=== PATIENT | female | born 1990 | race Caucasian/White ===

== ENCOUNTER 2017-12-27 19:32 | Emergency (ER) | payer OTHER | END 2017-12-27 22:21 | disposition home or self-care (01) | LOC: D.ER 19:32 | DX: S80.01XA Contusion of right knee, initial encounter (principal); S50.01XA Contusion of right elbow, initial encounter; W19.XXXA Unspecified fall, initial encounter; Y93.89 Activity, other specified; Y92.828 Other wilderness area as the place of occurrence of the external cause; S80.211A Abrasion, right knee, initial encounter; S50.311A Abrasion of right elbow, initial encounter ==

== ENCOUNTER 2018-03-02 21:05 | Emergency (ER) | payer OTHER ==
[~2018-03-02] VITALS: Ht 149.9 cm; Wt 80.0 kg
[2018-03-02 21:21] VITALS: Ht 149.9 cm; Wt 80.0 kg
[2018-03-02] MEDS ORDERED: PHENERGAN25 M1 (21:23)
[2018-03-02 22:00] LABS: BASOPHILS 0.1 % (0-2); EOSINOPHILS 0.1 % (0-7); HEMATOCRIT 39.8 % (36.0-48.0); HEMOGLOBIN 14.9 g/dL (12-16); IMMATURE GRANULOCYTES 0.3 % (0-5); LYMPHOCYTES 10.2 % (15-50); MCH 32.6 pg (26.0-34.0); MCHC 37.4 g/dL (31.0-37.0); MCV 87.1 fL (80.0-100.0); MEAN PLATELET VOLUME 10.3 fL (7.4-10.4); MONOCYTES 9.2 % (2-11); NEUTROPHILS 80.1 % (40-80); PLATELET COUNT 248 10x3/uL (130-400); RBC 4.57 10x6/uL (4.00-5.40); RDW 11.8 % (11.5-14.5); WBC 13.8 10x3/uL (4.8-10.8)
[2018-03-02 22:08] LABS: APPEARANCE HAZY (CLEAR); BILIRUBIN 3+ (NEGATIVE); COLOR AMBER (YELLOW); GLUCOSE NEGATIVE (NEGATIVE); KETONE NEGATIVE (NEGATIVE); NITRITE NEGATIVE (NEGATIVE); PROTEIN TRACE mg/dL (NEGATIVE)
[2018-03-02 22:13] LABS: BACTERIA MODERATE /hpf (NONE SEEN); EPITHELIAL CELLS 0-5 /hpf (0-5); RED CELLS - URINE RARE /hpf (0-5)
[2018-03-02 22:14] LABS: AMORPHOUS SEDIMENT <1+ /lpf (NONE SEEN); HYALINE CAST OCC /lpf (NONE SEEN); WAXY CAST RARE /lpf (NONE SEEN)
[2018-03-02 22:41] LABS: ALBUMIN 3.5 g/dL (3.4-5.0); ANION GAP 9.5 mmol/L (8-16); BILIRUBIN - TOTAL 4.93 mg/dL (0.2-1.3); CALCIUM 9.4 mg/dL (8.5-10.1); CARBON DIOXIDE 31.3 mmol/L (21.0-32.0); CREATININE - SERUM 1.3 mg/dL (0.6-1.3); PROTEIN - SERUM 7.8 g/dL (6.4-8.2)
[2018-03-02 22:51] LABS: POTASSIUM - SERUM 2.8 mmol/L (3.5-5.1)
[2018-03-03] MEDS ORDERED: ZOFRAN ODT4 MG/UDTAB PO (00:57)
[2018-03-03 01:15] VITALS: BP 138/76
[2018-03-04 12:19] LABS: HEPATITIS C ANTIBODY 0.1 (0.0-0.9)
== END 2018-03-03 01:15 | disposition home or self-care (01) ==
LOC: D.ER 21:05
PROVIDERS: Family Medicine
DX: O21.9 Vomiting of pregnancy, unspecified (principal); Z3A.08 8 weeks gestation of pregnancy; E87.6 Hypokalemia

== ENCOUNTER 2018-05-24 17:25 | Emergency (ER) | payer OTHER ==
[~2018-05-24] VITALS: Ht 149.9 cm; Wt 77.7 kg
[~2018-05-24 17:25] MED LIST: PHENERGAN25 M1; ZOFRAN ODT4 MG/UDTAB PO
[2018-05-24 17:26] VITALS: Ht 149.9 cm; Wt 77.7 kg
[2018-05-24] MEDS ORDERED: TYLENOL W/CODEI1 TAB PO (18:23)
[2018-05-24 18:37] VITALS: BP 154/91
== END 2018-05-24 18:55 | disposition home or self-care (01) ==
LOC: D.ER 17:25
DX: O26.892 Other specified pregnancy related conditions, second trimester (principal); Z3A.00 Weeks of gestation of pregnancy not specified; M54.2 Cervicalgia; T14.8XXA Other injury of unspecified body region, initial encounter; V43.52XA Car driver injured in collision with other type car in traffic accident, initial encounter; Y93.89 Activity, other specified; Y92.410 Unspecified street and highway as the place of occurrence of the external cause

== ENCOUNTER 2018-05-24 18:56 | Outpatient (CLI) | payer OTHER ==
[2018-05-24 17:26] VITALS: BMI 34.6
[~2018-05-24 18:56] MED LIST changes: +TYLENOL W/CODEI1 TAB PO
[2018-05-24 20:41] LABS: BASOPHILS 0.1 % (0-2); EOSINOPHILS 0.8 % (0-7); IMMATURE GRANULOCYTES 0.5 % (0-5); LYMPHOCYTES 13.1 % (15-50); MCHC 34.4 g/dL (31.0-37.0); MEAN PLATELET VOLUME 9.5 fL (7.4-10.4); MONOCYTES 6.1 % (2-11); NEUTROPHILS 79.4 % (40-80); RBC 3.44 10x6/uL (4.00-5.40); RDW 12.6 % (11.5-14.5); WBC 16.9 10x3/uL (4.8-10.8)
[2018-05-24 21:02] LABS: INR 0.92 (0.85-1.17)
[2018-05-24 21:08] LABS: PLATELET COUNT 352 10x3/uL (130-400)
[2018-05-26 11:20] LABS: ACLA - IGG AB <9 GPL U/mL (0-14); ACLA - IGM AB <9 MPL U/mL (0-12)
[2018-05-27 13:17] LABS: LUPUS - INTERPRETATION Comment: (()); LUPUS - THROMBIN TIME 14.2 sec (0.0-23.0); LUPUS - dRVVT 34.7 sec (0.0-47.0); PTT-LA 33.5 sec (0.0-51.9)
== END 2018-05-24 22:05 ==
LOC: D.LDO 18:56
PROVIDERS: Obstetrics & Gynecology
DX: O26.892 Other specified pregnancy related conditions, second trimester (principal); Z3A.22 22 weeks gestation of pregnancy; M54.2 Cervicalgia; R10.30 Lower abdominal pain, unspecified; V49.9XXA Car occupant (driver) (passenger) injured in unspecified traffic accident, initial encounter; Y93.89 Activity, other specified; Y92.410 Unspecified street and highway as the place of occurrence of the external cause

== ENCOUNTER → 2018-05-26 13:34 | Outpatient (CLI) | payer OTHER ==
[2018-05-24 17:26] VITALS: BMI 34.6
[2018-05-26 13:51] LABS: BASOPHILS 0.2 % (0-2); EOSINOPHILS 0.7 % (0-7); HEMATOCRIT 31.5 % (36.0-48.0); HEMOGLOBIN 10.7 g/dL (12-16); IMMATURE GRANULOCYTES 0.5 % (0-5); LYMPHOCYTES 16.7 % (15-50); MCH 31.8 pg (26.0-34.0); MCV 93.5 fL (80.0-100.0); MEAN PLATELET VOLUME 9.6 fL (7.4-10.4); MONOCYTES 4.9 % (2-11); PLATELET COUNT 351 10x3/uL (130-400); RBC 3.37 10x6/uL (4.00-5.40); RDW 12.5 % (11.5-14.5)
== END | disposition home or self-care (01) ==
LOC: D.LDO 13:34
PROVIDERS: Obstetrics & Gynecology
DX: O26.899 Other specified pregnancy related conditions, unspecified trimester (principal); Z3A.00 Weeks of gestation of pregnancy not specified

== ENCOUNTER 2018-07-04 19:10 | Outpatient (CLI) | payer OTHER ==
[2018-07-04 19:46] LABS: BASOPHILS 0.2 % (0-2); EOSINOPHILS 0.8 % (0-7); HEMATOCRIT 30.8 % (36.0-48.0); HEMOGLOBIN 10.4 g/dL (12-16); IMMATURE GRANULOCYTES 0.4 % (0-5); LYMPHOCYTES 19.3 % (15-50); MCH 31.3 pg (26.0-34.0); MCHC 33.8 g/dL (31.0-37.0); MCV 92.8 fL (80.0-100.0); MEAN PLATELET VOLUME 9.6 fL (7.4-10.4); MONOCYTES 4.5 % (2-11); NEUTROPHILS 74.8 % (40-80); PLATELET COUNT 396 10x3/uL (130-400); RBC 3.32 10x6/uL (4.00-5.40); RDW 12.1 % (11.5-14.5); WBC 17.4 10x3/uL (4.8-10.8)
[2018-07-04 20:12] LABS: APPEARANCE CLEAR (CLEAR); BILIRUBIN NEGATIVE (NEGATIVE); COLOR YELLOW (YELLOW); GLUCOSE NEGATIVE (NEGATIVE); KETONE NEGATIVE (NEGATIVE); NITRITE NEGATIVE (NEGATIVE); PROTEIN TRACE mg/dL (NEGATIVE); SPECIFIC GRAVITY 1.025 (1.005-1.020); UROBILINOGEN NORMAL (NORMAL)
[2018-07-04 20:13] LABS: BACTERIA FEW /hpf (NONE SEEN); EPITHELIAL CELLS 0-5 /hpf (0-5); RED CELLS - URINE OCC /hpf (0-5); WHITE CELLS - URINE 0-5 /hpf (0-5)
[2018-07-05 01:09] LABS: UDS - AMPHET NEGATIVE QUAL (NEGATIVE); UDS - BARB NEGATIVE QUAL (NEGATIVE); UDS - BENZO NEGATIVE QUAL (NEGATIVE); UDS - COCAINE NEGATIVE QUAL (NEGATIVE); UDS - OPIATE NEGATIVE QUAL (NEGATIVE); UDS - PCP NEGATIVE QUAL (NEGATIVE); UDS - THC POSITIVE QUAL (NEGATIVE)
== END 2018-07-05 04:20 | disposition other institution (70) ==
LOC: D.LDO 19:10 → D.LD 22:13 → D.LDO 07-05 04:20
PROVIDERS: Obstetrics & Gynecology
DX: O26.892 Other specified pregnancy related conditions, second trimester (principal); Z3A.28 28 weeks gestation of pregnancy

== ENCOUNTER 2018-11-19 23:00 | Emergency (ER) | payer OTHER ==
[~2018-11-19] VITALS: Ht 149.9 cm; Wt 93.6 kg
[2018-11-19 23:11] VITALS: Ht 149.9 cm; Wt 93.6 kg
[2018-11-20 00:24] VITALS: BP 124/81
== END 2018-11-20 00:24 | disposition home or self-care (01) ==
LOC: D.ER 23:00
DX: M25.511 Pain in right shoulder (principal); M54.12 Radiculopathy, cervical region

== ENCOUNTER 2019-01-08 18:06 | Emergency (ER) | payer OTHER ==
[~2019-01-08] VITALS: Ht 149.9 cm; Wt 90.9 kg
[2019-01-08 18:08] VITALS: Ht 149.9 cm; Wt 90.9 kg
[2019-01-08] MEDS ORDERED: CLEOCIN HCL300 MG PO (19:08)
[2019-01-08] MEDS ORDERED: TYLENOL W/CODEI1 TAB PO (19:08)
[2019-01-08 19:44] VITALS: BP 123/79
== END 2019-01-08 19:44 | disposition home or self-care (01) ==
LOC: D.ER 18:06
DX: L73.2 Hidradenitis suppurativa (principal)

== ENCOUNTER 2019-02-01 06:30 | Day surgery (SDC) | payer OTHER ==
[2019-01-31 12:47] LABS: HEMATOCRIT 36.8 % (36.0-48.0); HEMOGLOBIN 12.4 g/dL (12-16); MCH 29.7 pg (26.0-34.0); MCHC 33.7 g/dL (31.0-37.0); MEAN PLATELET VOLUME 9.4 fL (7.4-10.4); RBC 4.18 10x6/uL (4.00-5.40); RDW 13.8 % (11.5-14.5); WBC 8.9 10x3/uL (4.8-10.8)
[2019-01-31 12:48] LABS: CALC OSMOLALITY 279 mosm/kg (275-300); CALCIUM 8.9 mg/dL (8.5-10.1); CARBON DIOXIDE 27.4 mmol/L (21.0-32.0); CHLORIDE - SERUM 107 mmol/L (98-107); CREATININE - SERUM 0.8 mg/dL (0.6-1.3); GLUCOSE 105 mg/dL (74-106); SODIUM 141 mmol/L (136-145); UREA NITROGEN 10 mg/dL (7-18); eGFR NON AFRICAN AMERICAN > 90 mL/min (90-120)
[~2019-02-01] VITALS: Ht 149.9 cm; Wt 97.7 kg
[~2019-02-01 06:30] MED LIST changes: +CLEOCIN HCL300 MG PO; +NEURONTIN600 MG PO; +PROZAC20 MG PO; +REMERON15 MG PO
[2019-02-01 06:49] VITALS: BP 128/74; Ht 149.9 cm; Wt 97.7 kg
[2019-02-01] MEDS ORDERED: SULFAMETHOXAZOL1 TA3 PO (08:37)
[2019-02-01] MEDS ORDERED: HYDROCODON-ACE1 EAC7 PO (08:37)
--- NOTE | 2019-02-01 10:10 | NUR ---
1010 FL DIET SERVED.
--- NOTE | 2019-02-01 10:36 | NUR ---
1035 DR. FLORES ROUNDS ON PT.
--- NOTE | 2019-02-01 11:20 | NUR ---
DC'D HOME WITH FAMILY VIA PRIVATE VEHICLE. STABLE AT TIME OF DC.
--- NOTE | 2019-02-01 12:33 | OP ---
PATIENT NAME: GI FLORIAN MEDICAL RECORD: [id number] :89 LOCATION:[facility] ADMISSION DATE: SURGEON: GABRIELLE FLORES MD DATE OF OPERATION: 02/01/2019 SURGEON: Gabrielle Flores MD PREOPERATIVE DIAGNOSIS: Right axillary hidradenitis. POSTOPERATIVE DIAGNOSIS: Right axillary hidradenitis. PROCEDURE PERFORMED: Excisional biopsy of right axillary hidradenitis, 10 x 8 x 3 cm. Case was contaminated. SPECIMENS: Right axillary hidradenitis. ESTIMATED BLOOD LOSS: 30 cc. OPERATIVE COURSE: After consent was obtained, the patient was taken to the operating room and placed in supine position on the operating table. Next, general anesthesia was given. A timeout was taken to confirm the correct patient and procedure. The right arm was prepped and draped in typical sterile fashion. A 20 cc of local anesthetic were injected circumferentially around the area of hidradenitis. An elliptical incision was made that was approximately 10 cm in length, 8 cm in width and 3 cm in depth. Dissection then continued with electrocautery, making sure to include all the affected tissue. Once the specimen was excised, it was sent for permanent pathology. Meticulous care was taken to subcutaneous tissue for hemostasis. The wound was cleaned with peroxide. A ABIGAIL drain was placed in the deep subcutaneous tissue and delivered to this and secured to the skin with 2-0 nylon suture. The wound was then closed in 3 layers. Deep subcutaneous tissue was closed with 3-0 Vicryl suture, superficial subQ was closed with 3-0 Vicryl sutures. Skin was closed with a 4-0 Stratafix, Mastisol, and Steri-Strips. At the end of the case, all needle and instrument counts were correct. No complications occurred. The patient was extubated and transferred to the PACU in stable condition. 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
== END 2019-02-01 11:20 | disposition home or self-care (01) ==
LOC: D.OPS 06:30 → D.PAN 08:00 → D.OPS 08:00
PROVIDERS: Anesthesiology; ATTEND Surgery
DX: L73.2 Hidradenitis suppurativa (principal)

== ENCOUNTER 2019-02-08 01:13 | Emergency (ER) | payer OTHER ==
[~2019-02-08] VITALS: Ht 149.9 cm; Wt 90.9 kg
[~2019-02-08 01:13] MED LIST changes: +HYDROCODON-ACE1 EAC7 PO; +SULFAMETHOXAZOL1 TA3 PO
[2019-02-08 01:18] VITALS: BP 141/92; Ht 149.9 cm; Wt 90.9 kg
[2019-02-08] MEDS ORDERED: SULFAMETHOXAZOL1 TA3 PO (02:14)
== END 2019-02-08 03:00 | disposition home or self-care (01) ==
LOC: D.ER 01:13
DX: T81.31XA Disruption of external operation (surgical) wound, not elsewhere classified, initial encounter (principal)